=== PATIENT | female | born 1955 ===

== ENCOUNTER 2020-06-06 14:20 | Outpatient (CLI) | payer MEDICAID ==
--- NOTE | 2020-06-07 10:30 | Consultation ---
DATE OF CONSULTATION: 06/06/2020 CONSULTING PHYSICIAN: Daniel Peck MD. REASON FOR CONSULTATION: Referral for screening colonoscopy. PAST MEDICAL HISTORY: None. PAST SURGICAL HISTORY: Sinus surgery. MEDICATIONS: None. FAMILY HISTORY: Father had skin cancer and cancer. SOCIAL HISTORY: The patient denies any tobacco, alcohol, or drug abuse. ALLERGIES: No known allergies. REVIEW OF SYSTEMS: Negative. PHYSICAL EXAMINATION: VITAL SIGNS: Temperature 97.2, blood pressure 160/82, pulse 68, respirations 20. HEENT: Normocephalic and atraumatic. Sclerae are anicteric. NECK: Supple. No evidence of obvious lymphadenopathy. CARDIOVASCULAR: Regular rate and rhythm. Plus S1-S2. LUNGS: Clear to auscultation bilaterally. ABDOMEN: Positive bowel sounds. Soft, nontender. No rebound. No guarding. No peritoneal sign. EXTREMITIES: No cyanosis, no clubbing, no edema. ASSESSMENT AND PLAN: This is a 64-year-old patient needs a screening colonoscopy. The patient was given instruction for colonoscopy. Risks and benefits of the procedure was explained to her. We will schedule her as soon as the authorization is obtained. Daniel Peck M.D. DR: MAHESH JOB#: [id number] CC:
== END 2020-06-06 16:20 | disposition home or self-care (01) ==
LOC: PAN 14:20
DX: Z00.00 Encounter for general adult medical examination without abnormal findings (principal)
CPT/HCPCS: 99203